=== PATIENT | male | born 1995 | race Two or more races ===

== ENCOUNTER 2020-01-18 13:28 | Emergency (ER) | payer MEDICAID ==
[~2020-01-18] VITALS: Ht 172.7 cm; Wt 70.0 kg
[2020-01-18] MEDS ORDERED: BACITRACIN ZINC OINT UDPKT TOP ONE (14:45)
[2020-01-18] MEDS ORDERED: IBUPROFEN 600MG TABLET PO ONE (14:45)
[2020-01-18 16:26] VITALS: BP 120/52
== END 2020-01-18 16:29 | disposition home or self-care (01) ==
LOC: ER 13:28
DX: S80.211A Abrasion, right knee, initial encounter (principal); S90.511A Abrasion, right ankle, initial encounter; Z63.9 Problem related to primary support group, unspecified; W18.30XA Fall on same level, unspecified, initial encounter; Y93.89 Activity, other specified; Y92.89 Other specified places as the place of occurrence of the external cause; Y99.8 Other external cause status
CPT/HCPCS: 99283